=== PATIENT | male | born 2000 | race Caucasian/White ===

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

== ENCOUNTER 2019-05-13 11:45 | Emergency (ER) | payer MEDICAID ==
--- NOTE | 2019-05-13 12:03 | Emergency Department Record ---
History of Present Illness - General Chief Complaint: Ankle/Foot Injury Stated Complaint: LEFT FOOT INJURY Time Seen by Provider: 05/13/19 11:55 Source: Patient Mode of Arrival: Ambulatory Limitations: No limitations - History of Present Illness Initial Comments: 19 yo male presents with left foot and ankle pain. He states he was walking around a fire pit on Sunday. He was intoxicated and mis-stepped. He noted foot and ankle pain the next day that has not resolved. He works on his feet all day. The foot and ankle hurts at the end of standing all day. He has slight swelling and bruising. No other pain or injury. MD Complaint: Ankle injury, Foot injury Onset/Timin -: Days(s) Type of Injury: Unknown Place: Street/outdoors Severity: Mild Severity scale (1-10): 6 Improves With: Immobilization Worsens With: Nothing, Weight bearing Context: Walking Associated Symptoms: Able to partially bear weight - Related Data Allergies Allergy/AdvReac Type Severity Reaction Status Date / Time No Known Drug Allergies Allergy Verified 01/06/18 14:12 Travel Screening - Travel/Exposure Within Last 30 Days Have you traveled within the last 30 days?: No Review of Systems Constitutional: Denies: Chills, Fever, Malaise, Weakness Eyes: Denies: Eye discharge ENT: Denies: Congestion, Throat pain Respiratory: Denies: Cough, Dyspnea, Wheezes Cardiovascular: Denies: Chest pain, Palpitations, Syncope Endocrine: Denies: Fatigue Gastrointestinal: Denies: Abdominal pain, Diarrhea, Nausea, Vomiting Genitourinary: Denies: Dysuria, Frequency, Hematuria Musculoskeletal: Denies: Arthralgia, Back pain, Myalgia Skin: Denies: Bruising, Change in color, Rash Neurological: Denies: Headache Psychiatric: Denies: Anxiety Hematological/Lymphatic: Denies: Easy bleeding, Easy bruising Past Medical History - SOCIAL HISTORY Smoking Status: Current some day smoker - RESPIRATORY Hx Respiratory Disorders: No - CARDIOVASCULAR Hx Cardio Disorders: No - NEURO Hx Neuro Disorders: No - GI Hx GI Disorders: No - Hx Genitourinary Disorders: No - ENDOCRINE Hx Endocrine Disorders: No - MUSCULOSKELETAL Hx Musculoskeletal Disorders: No - PSYCH Hx Psych Problems: Yes Comment:: ADHD, - HEMATOLOGY/ONCOLOGY Hx Hematology/Oncology Disorders: No Family Medical History Any Significant Family History?: No Physical Exam - General General Appearance: Alert, Oriented x3, Cooperative, No acute distress Limitations: No limitations - Head Head exam: Atraumatic, Normal inspection - Eye Eye exam: Normal appearance, PERRL. negative: Conjunctival injection - ENT ENT exam: Normal exam, Mucous membranes moist Ear exam: Normal external inspection Nasal Exam: Normal inspection Mouth exam: Normal external inspection - Neck Neck exam: Normal inspection - Cardiovascular Peripheral Pulses: 2+: Dorsalis Pedis (L) - Rectal Rectal exam: Deferred - exam: Deferred - Extremities Extremities exam: Full ROM, Joint swelling (minimal lateral ankle), Tenderness, Other (Non tender achilles). negative: Normal inspection, Calf tenderness, Pedal edema Image of Feet: 1 - tender proximal lateral foot and lateral malleolus - Neurological Neurological exam: Alert, Oriented X3 - Psychiatric Psychiatric exam: Normal affect, Normal mood - Skin Skin exam: Dry, Intact, Normal color, Warm Course Vital Signs 05/13/19 11:51 Temperature 97.7 F Pulse Rate [ 89 Pulse Ox Probe] Respiratory 16 Rate Blood Pressure 160/82 [Left Arm] Pulse Ox 96 - Reevaluation(s) Reevaluation #1: 05/13/19 12:37 The XRs were reviewed No obvious displaced fracture or dislocation Final results to follow. 05/13/19 13:00 The final reads of the radiologist were negative The patient was placed in a boot and crutches to allow healing We discussed one week follow up if pain persists Disposition Disposition: Discharge Clinical Impression: Ankle sprain Disposition: Home, Self-Care Condition: (1) Good Instructions: Ankle Sprain (ED) Forms: Patient Portal Access Time of Disposition: 13:01 Quality - Quality Measures Quality Measures: N/A - Blood Pressure Screening Does Patient Have Any of the Following: No Blood Pressure Classification: Pre-Hypertensive BP Reading Systolic Measurement: 160 Diastolic Measurement: 82 Screening for High Blood Pressure: < Pre-Hypertensive BP, F/U Documented > [G8950] Pre-Hypertensive Follow-up Interventions: Referral to alternative/primary care provider.
--- NOTE | 2019-05-13 12:56 | RADIOLOGY REPORT ---
EXAMINATION: Left Ankle, Complete Minimum Three Views EXAM DATE: 05/13/2019 12:26 PM TECHNIQUE: AP, lateral, and oblique INDICATION: injured Sunday mis stepped, lateral foot and ankle COMPARISON: None ENCOUNTER: Initial FINDINGS: There is no bone or joint abnormality. Osseous mineralization is within normal limits. No aggressive osseous lesion is seen. The ankle joint and tarsal navicular joints are well aligned. The carpal and metatarsal joints are normal. Mild soft tissue swelling at the lateral ankle is seen. IMPRESSION: No acute fracture or dislocation of the left ankle. Mild soft tissue swelling of the lateral ankle. Dictated by: Bryce Mcguire DO on 05/13/2019 12:54 PM. .
--- NOTE | 2019-05-13 12:59 | RADIOLOGY REPORT ---
EXAMINATION: Left Foot, Minimum Three Views EXAM DATE: 05/13/2019 12:26 PM TECHNIQUE: AP, lateral, and oblique INDICATION: injured Sunday mis stepped, lateral foot and ankle COMPARISON: None ENCOUNTER: Initial FINDINGS: There is no bone or joint abnormality. No acute fracture or dislocation. There is mild soft tissue sw elling over the lateral malleolus. IMPRESSION: No evidence of fracture or dislocation. Dictated by: Nate Canales MD on 05/13/2019 12:55 PM. .
== END 2019-05-13 13:20 | disposition home or self-care (01) ==
LOC: ER 11:45
DX: S93.402A Sprain of unspecified ligament of left ankle, initial encounter (principal); M79.672 Pain in left foot; F17.210 Nicotine dependence, cigarettes, uncomplicated; W01.10XA Fall on same level from slipping, tripping and stumbling with subsequent striking against unspecified object, initial encounter; Y92.89 Other specified places as the place of occurrence of the external cause
CPT/HCPCS: 99283